=== PATIENT | female | born 1960 | race Caucasian/White ===

== ENCOUNTER → 2022-04-06 | Outpatient (CLI) | payer OTHER, SELFPAY ==
--- NOTE | 2022-04-06 11:10 | RAD_ITS ---
STUDY: X-RAY - LEFT KNEE REASON FOR EXAM: Female, 61 years old. PAIN TECHNIQUE: 3 view(s) of the knee. COMPARISON: None. FINDINGS: There is demineralization of the visualized distal femur. There is demineralization of the tibia and fibula. Normal proximal tibiofibular articulation. There is moderate degenerative arthrosis of the medial femorotibial compartment with moderate joint space narrowing. There is mild degenerative arthrosis of the lateral femorotibial compartment. There is moderate degenerative arthrosis of the patellofemoral articulation. The soft tissue structures are unremarkable. 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 Electronically Signed: Simon Barker DO at 18:19 EDT ,
[2022-04-06 12:22] LABS: Absolute Lymphocyte Count 1.94 X10^3/uL (0.83-4.51); Absolute Neutrophil Count 4.3 X10^3/uL (2.0-7.7); Basophil# 0.07 X10^3/uL; Eosinophil# 0.39 X10^3/uL; Eosinophils% 5.4 % (0-5); Hemoglobin 16.3 g/dL (12.0-15.0); Lymphocyte # 1.94 X10^3/ul (0.83-4.51); Mean Corpuscular Hgb 30.1 pg (27.0-32.0); Mean Corpuscular Volume 88.7 fL (81-99); Mean Platelet Vol. 10.7 fl (6.2-12.0); Monocyte# 0.47 X10^3/uL; Monocyte% 6.5 % (0-10); NRBC Flagged by Analyzer 0 % (0-5); Neutrophil # 4.29 X10^3/uL (2.7-7.7); Neutrophil % 59.8 % (47-70); Platelet Count 242 K/mm3 (150-450); RBC Distribution Width CV 13.2 % (11.6-14.6); RBC Distribution Width SD 42.8 fl (35.1-43.9); Red Blood Count 5.41 M/mm3 (4.2-5.4); White Blood Count 7.2 K/mm3 (4.4-11.0)
[2022-04-06 12:55] LABS: Hemoglobin A1c 6.6 % (3.8-5.6)
[2022-04-06 12:59] LABS: ALB/GLOB Ratio 1.1 RATIO (0.9-2.4); AST(SGOT) 17 U/L (15-37); Alanine Aminotransfer ALT/SGPT 37 U/L (13-56); Alkaline Phosphatase 66 U/L (45-117); Anion Gap 8 (5-15); BUN 23 mg/dL (7-18); BUN/Creat Ratio 23.5 RATIO (10-20); Calcium,Total 9.8 mg/dL (8.5-10.1); Chloride 104 mmol/L (98-107); Cholesterol 286 mg/dL (200); Creatinine, Serum 0.98 mg/dL (0.55-1.02); EST Glomerular Filtration Rate 61 mL/min (>60); Est Glom Filt Rate - Afr Amer 74 mL/min (>60); Globulin 3.8 g/dL (2.2-4.2); Glucose 143 mg/dL (74-106); High Density Lipoprotein 64 mg/dL; Potassium 3.5 mmol/L (3.5-5.1); Protein, Total 7.8 g/dL (6.4-8.2); Sodium Level 137 mmol/L (136-145); Triglycerides 219 mg/dL; Very Low Density Lipoprotein 44 mg/dL (5-40)
== END | disposition home or self-care (01) ==
PROVIDERS: PCP Family Medicine; Referring Provider Family Medicine; Visit Provider Family Medicine
DX: E11.9 Type 2 diabetes mellitus without complications (principal); E66.9 Obesity, unspecified; M25.562 Pain in left knee
CPT/HCPCS: 36415; 73564; 80053; 80061; 83036; 84443; 85025

== ENCOUNTER 2024-10-27 11:46 | Emergency (ER) | payer MEDICARE, SELFPAY ==
[2024-10-27 11:47] VITALS: BP 189/99; PULSE 74; RESP 16; TEMP 36.3; O2SAT 96; BMI 33.2
--- NOTE | 2024-10-27 12:21 | RAD_ITS ---
PROCEDURE: CHEST 1 VIEW (PORTABLE) REASON FOR EXAM: Cough TECHNIQUE: Frontal view of the chest. COMPARISON: None FINDINGS: The heart size is normal. The lungs are clear. No pneumothorax. Elevated right hemidiaphragm is nonspecific. RAD/Chest 1 View (Portable) IMPRESSION: As above. Reading [facility]
--- NOTE | 2024-10-27 12:21 | EKG12_ITS ---
Test Reason : CP Blood Pressure : */* mmHG Vent. Rate : 67 BPM Atrial Rate : 67 BPM P-R Int : 184 ms QRS Dur : 118 ms QT Int : 418 ms P-R-T Axes : 28 -60 25 degrees QTcB Int : 441 ms Normal sinus rhythm Left anterior fascicular block Left ventricular hypertrophy with QRS widening ( R in aVL , Downs product ) Abnormal ECG Confirmed by JOCELYNE MIGUEL MD ([id number]), makeup editor WENDY LOWRY ([id number]) on 10/28/2024 8:22:33 AM Referred By: Tima Paez Confirmed By: JOCELYNE MIGUEL MD
--- NOTE | 2024-10-27 12:35 | EX.ED.DYSGE1 ---
HPI History of Present Illness Chief Complaint: Hypertension Narrative Narrative: Chief complaint and HPI: Hypertension. 64-year-old female with previous history of hypertension no longer on antihypertensive, DM presents for evaluation of hypertension. Patient states that she used to be on antihypertensives but was taken off of them when she lost weight several years ago. Patient states she saw her PCP in August and she had high blood pressure at that time but has yet to be placed on medication. She states she has periodically been checking her blood pressure at home and is usually in the 160s. Occasionally it is higher. Patient states that she developed some chest pressure earlier today and headache so she checked her blood pressure and it was high which is why she presents. She states her headache has resolved. She states overall she thinks her headache was a sinus headache. She states her chest pain is already improving and almost resolved. Chest pain was described as crampy did not radiate into the jaw abdominal arm. She denies any fever, chills, shortness of breath, abdominal pain, nausea, vomiting. Patient states for the past several months she has been having blurry vision. She has not seen an eye doctor in 3 years. Her PCP told her to follow-up with an eye physician. Review of systems: See HPI Medications: As listed on the chart Allergies: As listed on the chart PFSH: Per chart Vital signs: As listed on the chart. Reviewed. Physical exam: Gen: A&O x3, NAD Head: Normocephalic, atraumatic Eyes: No sclera icterus, conjunctiva clear, PERRL, EOMI ENT: Moist mucous membranes Neck: Trachea midline, No JVD CV: RRR, no murmurs, no peripheral edema Resp: Lungs CTA BL, no w/r/c GI: Abd soft, non-distended, non-tender, no r/r/g Musc: Full ROM, no deformity Skin: Warm, dry Neuro: Alert, oriented, grossly intact, sensation intact Psych: Cooperative, appropriate mood and affect [facility] Medical History (Updated 10/27/24 @ 12:39 by Albert Dowling) Breast CA Home Medications ?Medication ?Instructions ?Recorded ?Last Taken ?Type amlodipine 10 mg tablet 10 mg PO DAILY 30 days #30 tabs 10/27/24 Unknown Rx clonidine HCl 0.1 mg tablet 0.1 mg PO TID PRN HTN #6 tabs 10/27/24 Unknown Rx Allergy/AdvReac Type Severity Reaction Status Date / Time codeine AdvReac Mild Other Verified 10/27/24 11:53 levofloxacin (From Levaquin) AdvReac Mild Other Verified 10/27/24 11:53 [id number] Reductase AdvReac Mild Other Verified 10/27/24 11:53 Inhibitor Social History Smoking Status: Never smoker EXAM Physical Exam Const Vital Signs: 10/27/24 11:47 10/27/24 13:00 10/27/24 14:00 Temperature 97.3 F L Temperature Source Temporal Pulse Rate 74 70 70 Respiratory Rate 16 16 18 Blood Pressure 189/99 H 167/85 H 187/96 H Blood Pressure Mean 129 112 126 Pulse Ox 96 92 97 Oxygen Delivery Method Room Air Room Air Room Air 10/27/24 15:00 10/27/24 15:30 Temperature Temperature Source Pulse Rate 81 Respiratory Rate 16 Blood Pressure 196/94 H 167/79 H Blood Pressure Mean 128 108 Pulse Ox 94 Oxygen Delivery Method Room Air MDM MDM MDM Narrative Medical decision making narrative: 64-year-old female with previous history of hypertension no longer on antihypertensive, DM presents for evaluation of hypertension. Differential diagnosis includes but is not limited to hypertension urgency, hypertensive emergency, ACS. On presentation patient's blood pressure is 189/99 however repeat in the room shows SBP in the 160s. Will hold off on blood pressure medication at this time as this is likely her baseline. Cardiac workup ordered with aspirin. Patient declined aspirin. EKG and chest x-ray reviewed see below. CBC without leukocytosis or anemia. BMP relatively unremarkable except for hyperglycemia. Patient is a known diabetic no ALISHA. BNP unremarkable. Patient's blood pressure increasing to the 190s. IV hydralazine ordered troponin unremarkable x 2. On reevaluation patient is not having any chest pain. She is currently asymptomatic. Her blood pressure is controlled at 167/79. Patient was updated on all her results and the plan for discharge home. Her heart score is a 3 which places her in low risk for ACS. I suspect her symptoms were hypertensive urgency. Patient will be placed on amlodipine for antihypertensive. She was told to follow-up with her PCP. Call the office in the morning. Monitor blood pressure at home. Will give her clonidine as needed for SBP greater than 175. She confirmed understand the plan. Return precautions explained. EKG: Interpreted by me/EM physician: EKG shows normal sinus rhythm without any acute ischemic changes. Patient does have a left anterior fascicular block. Heart rate is 67. I do not have a previous EKG to compare to. Diagnostic: Interpreted by me/EM physician: Chest x-ray without pneumonia, effusion, cardiomegaly, pneumothorax Impression: 1. Hypertension urgency 2. Chest pain, resolved 3. Hyperglycemia with known DM Lab Data Labs: Laboratory Results - last 24 hr 10/27/24 10/27/24 12:35 14:39 WBC 6.7 RBC 5.20 Hgb 15.8 H Hct 45.8 MCV 88.1 MCH 30.4 MCHC 34.5 RDW Std Deviation 40.0 RDW Coeff of [place] 12.3 Plt Count 239 MPV 10.3 Immature Gran % (Auto) 0.600 Neut % (Auto) 64.0 Lymph % (Auto) 22.8 [place] % (Auto) 6.3 Eos % (Auto) 5.1 H Baso % (Auto) 1.2 H Absolute Neuts (auto) 4.3 Absolute Lymphs (auto) 1.53 Nucleated RBC % 0 Sodium 135 L Potassium 3.6 Chloride 100 Carbon Dioxide 26.0 Anion Gap 9 BUN 16 Creatinine 1.02 Estim Creat Clear Calc 65.47 Est GFR (MDRD) Af Amer 70 Est GFR (MDRD) Non-Af 58 L BUN/Creatinine Ratio 15.7 Glucose 330 H Calcium 10.1 Troponin I High Sens 8 7 B-Natriuretic Peptide 33.6 Radiography Diagnostic Testing: Clinical Impression(s) from Imaging Studies Chest X-Ray 10/27/24 12:21 IMPRESSION: As above. Reading Location: [facility] Discharge Plan Triage Chief Complaint: Hypertension ED Provider: Tima Paez Dx/Rx/DC Orders Instructions: ED Hypertension, To Be Confirmed Prescriptions: New amlodipine 10 mg tablet 10 mg PO DAILY 30 Days Qty: 30 0RF clonidine HCl 0.1 mg tablet 0.1 mg PO TID PRN (Reason: HTN) Qty: 6 0RF Rx Instructions: SBP>175 Primary Care Provider: Susan James Referrals: Susan James MD [Primary Care Provider] - 3-5 Days Activity Restrictions/Additional Instructions: Follow-up with your primary care physician. Call the office tomorrow to make an appointment. Continue to check and monitor your blood pressure at home. Return back to the ED if symptoms change or worsen. Clonidine as needed for SBP greater than 175. Print Language: Korean Disposition Disposition: Home, Self Care
[2024-10-27 12:43] LABS: Absolute Lymphocyte Count 1.53 X10^3/uL (0.83-4.51); Absolute Neutrophil Count 4.3 X10^3/uL (2.0-7.7); Basophil# 0.08 X10^3/uL; Basophil% 1.2 % (0-1); Eosinophil# 0.34 X10^3/uL; Eosinophils% 5.1 % (0-5); Hematocrit 45.8 % (37-47); Hemoglobin 15.8 g/dL (12.0-15.0); Lymphocyte # 1.53 X10^3/ul (0.83-4.51); Lymphocyte % 22.8 % (19-41); Mean Corp Hgb Conc 34.5 g/dL (32-36); Mean Corpuscular Hgb 30.4 pg (27.0-32.0); Mean Corpuscular Volume 88.1 fL (81-99); Mean Platelet Vol. 10.3 fl (6.2-12.0); Monocyte# 0.42 X10^3/uL; Monocyte% 6.3 % (0-10); NRBC Flagged by Analyzer 0 % (0-5); Platelet Count 239 K/mm3 (150-450); RBC Distribution Width CV 12.3 % (11.6-14.6); White Blood Count 6.7 K/mm3 (4.4-11.0)
[2024-10-27 13:00] VITALS: BP 167/85; PULSE 70; RESP 16; O2SAT 92
[2024-10-27 13:01] LABS: Anion Gap 9 (5-15); BUN 16 mg/dL (7-18); BUN/Creat Ratio 15.7 RATIO (10-20); Calcium,Total 10.1 mg/dL (8.5-10.1); Chloride 100 mmol/L (98-107); Creatinine, Serum 1.02 mg/dL (0.55-1.02); EST Glomerular Filtration Rate 58 mL/min (>60); Est Glom Filt Rate - Afr Amer 70 mL/min (>60); Estimated Creatinine Clearance 65.47 ml/min; Glucose 330 mg/dL (74-106); Potassium 3.6 mmol/L (3.5-5.1); Sodium Level 135 mmol/L (136-145); Troponin-I HS (w/2H Reflex) 8 pg/mL (3.0-54.0)
[2024-10-27 13:02] LABS: BNP,B-Type NATRIURETIC PEPTIDE 33.6 pg/mL (0-100)
[2024-10-27 14:00] VITALS: BP 187/96; PULSE 70; RESP 18; O2SAT 97
[2024-10-27 14:38] LABS: Reflex Troponin-HS? (from REC) Y
[2024-10-27 15:00] VITALS: BP 196/94; PULSE 81; RESP 16; O2SAT 94
[2024-10-27 15:12] LABS: Troponin-I HS 7 pg/mL (3.0-54.0)
[2024-10-27] MEDS: hydrALAZINE 20 MG/ML Vial 10 MG IV (15:22)
[2024-10-27 15:30] VITALS: BP 167/79
[2024-10-27 15:42] VITALS: BP 167/69; PULSE 72; RESP 16; TEMP 36.6; O2SAT 98
== END 2024-10-27 15:43 | disposition home or self-care (01) ==
PROVIDERS: Emergency Provider Surgery; PCP Internal Medicine; Referring Provider Surgery; Visit Provider Surgery
DX: I10 Essential (primary) hypertension (principal); E11.65 Type 2 diabetes mellitus with hyperglycemia; I16.0 Hypertensive urgency; H53.8 Other visual disturbances; R07.89 Other chest pain; R51.9 Headache, unspecified
CPT/HCPCS: 71045; 80048; 83880; 84484; 85025; 93005; 99285; A4216